=== PATIENT | female | born 2000 | race African-American/Black ===

== ENCOUNTER 2022-05-01 04:33 | Emergency (ER) | payer MEDICAID ==
[~2022-05-01] VITALS: Ht 160 cm; Wt 105.0 kg
[2022-05-01 05:01] VITALS: BP 128/82
[2022-05-01] MEDS ORDERED: IPRATROPIUM BROMIDE (0.02%) 0.5MG/2.5ML NEB HHN STA (06:44)
[2022-05-01] MEDS ORDERED: ALBUTEROL (0.083%) 2.5MG/3ML NEB HHN STA (06:44)
[2022-05-01] MEDS ORDERED: PREDNISONE 20MG TABLET PO STA (06:44)
[2022-05-01] MEDS ORDERED: ACETAMINOPHEN 325MG TABLET PO ONE (07:00)
[2022-05-01] MEDS ORDERED: P50 MT (09:00)
[2022-05-01] MEDS ORDERED: ALBU6.7H9 INH (09:00)
== END 2022-05-01 09:37 | disposition home or self-care (01) ==
LOC: ER 04:33
DX: J45.901 Unspecified asthma with (acute) exacerbation (principal); Z20.822 Contact with and (suspected) exposure to COVID-19; Z88.0 Allergy status to penicillin
CPT/HCPCS: 81025; 87426; 94640; 99283; C9803; J7512; Z7610

== ENCOUNTER 2025-03-11 11:10 | Emergency (ER) | payer MEDICAID ==
[~2025-03-11] VITALS: Ht 170.2 cm; Wt 100.0 kg
[~2025-03-11 11:10] MED LIST: ALBU6.7H3 INH; P50 MT
[2025-03-11 11:29] VITALS: TEMP 37; O2SAT 99
[2025-03-11] MEDS ORDERED: DIPHENHYDRAMINE 50MG CAPSULE PO ONE (13:15)
[2025-03-11] MEDS: DIPHENHYDRAMINE 25MG CAPSULE PO SCH (13:37)
[2025-03-11] MEDS: KETOROLAC 30MG/ML VIAL IM ONE (13:38)
[2025-03-11] MEDS: LIDOCAINE 5% PATCH TOP STA (13:54)
[2025-03-11] MEDS ORDERED: ALBU18HF2 IH (14:51)
[2025-03-11] MEDS ORDERED: LIDO700A30 TP (14:51)
[2025-03-11] MEDS ORDERED: TRAM50TA3 MT (14:51)
[2025-03-11 15:18] VITALS: BP 105/61; PULSE 85; RESP 12; O2SAT 100
== END 2025-03-11 15:57 | disposition home or self-care (01) ==
LOC: ER 11:10
DX: M25.571 Pain in right ankle and joints of right foot (principal); J45.901 Unspecified asthma with (acute) exacerbation; Z88.0 Allergy status to penicillin; Z88.6 Allergy status to analgesic agent; Z79.899 Other long term (current) drug therapy; W01.0XXA Fall on same level from slipping, tripping and stumbling without subsequent striking against object, initial encounter; Y93.89 Activity, other specified; Y92.89 Other specified places as the place of occurrence of the external cause; Y99.8 Other external cause status
CPT/HCPCS: 99283; 29515; 73600; 96372; J1885; Q0163; A6449